=== PATIENT | female | born 1940 | race African-American/Black ===

== ENCOUNTER → 2018-03-17 | Outpatient (CLI) | payer MEDICARE, BC ==
[~2018-03-17] MED LIST: ALLO300T74; ASPI-867; ATOR-2; LOP25; TRIA1TAB5
== END | disposition home or self-care (01) ==
LOC: RAD 15:36
PROVIDERS: ATTEND Family Medicine
DX: Z96.651 Presence of right artificial knee joint (principal)
CPT/HCPCS: 73562

== ENCOUNTER 2019-06-24 12:06 | Emergency (ER) | payer MEDICARE, BC ==
[~2019-06-24] VITALS: Ht 165.1 cm; Wt 89.0 kg
[~2019-06-24 12:06] MED LIST changes: -ASPI-867; +ASPI325T85
[2019-06-24] MEDS ORDERED: SODIUM CHLORIDE 0.9% 1,000 ML IV ONE (13:17)
[2019-06-24] MEDS ORDERED: ONDANSETRON HCL 4MG/2ML INJ IV STA (13:17)
[2019-06-24] MEDS ORDERED: KETOROLAC 15MG/ML VIAL IV ONE (13:30)
[2019-06-24 13:50] LABS: BASOPHILS % 0.6 % (0.0-2.0); EOSINOPHILS % 1.3 % (0.0-5.0); HEMATOCRIT. 31.8 % (36.0-48.0); HEMOGLOBIN. 10.3 g/dL (12.0-16.0); MEAN CORPUSCULAR HEMOGLOBIN 28.4 pg (28.0-32.0); MEAN CORPUSCULAR VOLUME 87.5 fL (81.0-99.0); MEAN PLATELET VOLUME 8.1 fl (7.4-10.4); MONOCYTES % 6.5 % (2.0-8.0); NEUTROPHILS % 71.6 % (40.0-76.0); PLATELET 246 x1000/uL (130-400); RED BLOOD CELL COUNT 3.63 mill/uL (4.2-5.4)
[2019-06-24 14:21] LABS: CHLORIDE 106 mEq/L (98-107)
[2019-06-24 14:50] LABS: CLARITY URINE CLEAR (CLEAR); COLOR URINE YELLOW (YELLOW); KETONES URINE TRACE (NEGATIVE); LEUKOCYTE ESTERASE URINE TRACE (NEGATIVE); NITRITE URINE NEGATIVE (NEGATIVE); OCCULT BLOOD URINE NEGATIVE (NEGATIVE); PROTEIN URINE 2+ (NEGATIVE); SPECIFIC GRAVITY URINE 1.019 (1.005-1.030); UROBILINOGEN URINE 0.2 E.U./dL (0.2-1.0)
[2019-06-24] MEDS ORDERED: POTASSIUM CHLORIDE 20MEQ TABLET SR PO ONE (15:15)
[2019-06-24 16:18] VITALS: BP 148/68
[2019-07-13] MEDS ORDERED: AMLO5TAB4 MT (08:48)
[2019-07-13] MEDS ORDERED: ALLO300T2 MT (08:48)
[2019-07-13] MEDS ORDERED: MULT-1195 MT (08:51)
[2019-07-13] MEDS ORDERED: IBUP-2029 MT (08:51)
[2019-07-13] MEDS ORDERED: HYDR25TA MT (08:51)
[2019-07-13] MEDS ORDERED: LEVO25TA2 MT (08:51)
[2019-07-13] MEDS ORDERED: CLON-457 MT (08:51)
== END 2019-06-24 16:20 | disposition home or self-care (01) ==
LOC: ER 12:07
DX: N39.0 Urinary tract infection, site not specified (principal); I11.0 Hypertensive heart disease with heart failure; I50.9 Heart failure, unspecified; E78.5 Hyperlipidemia, unspecified; E03.9 Hypothyroidism, unspecified; I25.2 Old myocardial infarction; Z88.5 Allergy status to narcotic agent; Z88.0 Allergy status to penicillin; Z88.8 Allergy status to other drugs, medicaments and biological substances; Z79.82 Long term (current) use of aspirin; Z79.899 Other long term (current) drug therapy; Z96.659 Presence of unspecified artificial knee joint
CPT/HCPCS: 36415; 71045; 74176; 80053; 81003; 83690; 84484; 85025; 93005; 96374; 99284; J1885; J7030; J2405

== ENCOUNTER 2019-07-20 09:51 | Day surgery (SDC) | payer MEDICARE, BC ==
[~2019-07-20] VITALS: Ht 165.1 cm; Wt 88.5 kg
[~2019-07-20 09:51] MED LIST changes: +ALLO300T2 MT; +AMLO5TAB4 MT; -ASPI325T85; +CLON-457 MT; +HYDR25TA MT; +IBUP-2029 MT; +LEVO25TA2 MT; +MULT-1195 MT
[2019-07-20] MEDS ORDERED: LACTATED RINGERS 1,000 ML IV SCH (11:00)
[2019-07-20 11:06] LABS: BASOPHILS % 0.5 % (0.0-2.0); EOSINOPHILS % 1.8 % (0.0-5.0); HEMATOCRIT. 23.4 % (36.0-48.0); HEMOGLOBIN. 7.7 g/dL (12.0-16.0); LYMPHOCYTES % 17.6 % (20.0-50.0); MEAN CORPUSCULAR HEMOGLOBIN 29.2 pg (28.0-32.0); MEAN CORPUSCULAR VOLUME 88.2 fL (81.0-99.0); MEAN PLATELET VOLUME 8.1 fl (7.4-10.4); MONOCYTES % 4.9 % (2.0-8.0); NEUTROPHILS % 75.2 % (40.0-76.0); PLATELET 236 x1000/uL (130-400); RED BLOOD CELL COUNT 2.65 mill/uL (4.2-5.4); RED CELL DISTRIBUTION WIDTH 18.6 % (11.6-14.6)
[2019-07-20] MEDS ORDERED: AMLO5TAB88 PO (11:08)
[2019-07-20] MEDS ORDERED: PROPOFOL 200MG/20ML VIAL IV ONE (11:14)
[2019-07-20] MEDS ORDERED: GLYCOPYRROLATE 0.2 MG/ML 2ML VIAL ONE (11:14)
[2019-07-20] MEDS ORDERED: FENTANYL CITRATE/PF 50MCG/ML 2ML VIAL ONE (11:14)
[2019-07-20] MEDS ORDERED: MIDAZOLAM HCL 2 MG/2 ML VIAL ONE (11:14)
[2019-07-20] MEDS ORDERED: ONDANSETRON HCL 4MG/2ML INJ ONE (11:15)
[2019-07-20] MEDS ORDERED: METOCLOPRAMIDE HCL 10MG/2ML VIAL ONE (11:15)
[2019-07-20] MEDS ORDERED: LIDOCAINE HCL 1% 20ML VIAL (Pyxis) INJ ONE (11:15)
[2019-07-20] MEDS ORDERED: SUCCINYLCHOLINE CHLORIDE 200MG/10ML IV ONE (11:15)
[2019-07-20] MEDS ORDERED: HYDROMORPHONE HCL/PF 2MG/ML CPJ IV PRN (12:30)
[2019-07-20] MEDS ORDERED: MEPERIDINE HCL/PF 25MG/ML CPJ IV PRN ×2 (12:30)
[2019-07-20] MEDS ORDERED: ONDANSETRON HCL 4MG/2ML INJ IV PRN (12:30)
[2019-07-20 14:40] LABS: BASOPHILS % 0.5 % (0.0-2.0); EOSINOPHILS % 0.5 % (0.0-5.0); HEMATOCRIT. 28.5 % (36.0-48.0); HEMOGLOBIN. 9.4 g/dL (12.0-16.0); LYMPHOCYTES % 8.7 % (20.0-50.0); MEAN CORPUSCULAR HEMOGLOBIN 29.4 pg (28.0-32.0); MEAN CORPUSCULAR VOLUME 88.7 fL (81.0-99.0); MEAN PLATELET VOLUME 8.1 fl (7.4-10.4); MONOCYTES % 3.6 % (2.0-8.0); NEUTROPHILS % 86.7 % (40.0-76.0); PLATELET 256 x1000/uL (130-400); RED BLOOD CELL COUNT 3.21 mill/uL (4.2-5.4); RED CELL DISTRIBUTION WIDTH 18.5 % (11.6-14.6)
[2019-07-20] MEDS ORDERED: SODIUM CHLORIDE 0.9% 1,000 ML IV ONE (16:30)
== END 2019-07-20 18:10 | disposition home or self-care (01) ==
LOC: OR 09:51
PROVIDERS: ATTEND Obstetrics & Gynecology
DX: C53.9 Malignant neoplasm of cervix uteri, unspecified (principal); I10 Essential (primary) hypertension; I25.10 Atherosclerotic heart disease of native coronary artery without angina pectoris; E78.00 Pure hypercholesterolemia, unspecified; I25.2 Old myocardial infarction; E03.9 Hypothyroidism, unspecified; Z98.890 Other specified postprocedural states; Z79.899 Other long term (current) drug therapy; Z88.8 Allergy status to other drugs, medicaments and biological substances; Z88.5 Allergy status to narcotic agent; Z88.0 Allergy status to penicillin
CPT/HCPCS: 36415; 58558; 80048; 85025; 86850; 86900; 86901; 88305; J0330; J2250; J2405; J2704; J2765; J3010; J3490